=== PATIENT | male | born 1995 | race Caucasian/White ===

== ENCOUNTER 2016-10-01 07:50 | Emergency (ER) | payer SELFPAY ==
[2016-10-01 07:55] VITALS: BP 133/89
[2016-10-01] MEDS ORDERED: CIPROFLOXACIN HCL 500 MG TABLET PO ONE (08:17)
[2016-10-01] MEDS ORDERED: NEOMY SULF/POLYMYX B SULF/HC OTIC SUSP 10 ML AD ONE (08:17)
--- NOTE | 2016-10-01 08:17 | ER Document Report ---
ED ENT - General Mode of Arrival: Ambulatory Information source: Patient TRAVEL OUTSIDE OF THE [place] IN LAST 30 DAYS: No - HPI Patient complains to provider of: Ear problem Onset: Other - Refer to HPI Notes Associated symptoms: Ear pain - General Chief Complaint: Ear Pain Stated Complaint: EAR PAIN Time Seen by Provider: 10/01/16 08:09 Notes: Patient is a 21-year old male presenting to the emergency department for right ear pain. Patient's pain was onset a couple days ago and worsened yesterday. Patient states he has pain to the outside and inside of his ear but denies any drainage from his ear. Patient was swimming in his pool but has not been in since Sunday. Patient has been taking Tylenol. Patient states he had swimmer's ear as a child. Patient has no known drug allergies. (NATALY HAIRSTON) - Related Data Allergies/Adverse Reactions: No Known Allergies Allergy (Verified 10/01/16 08:03) Past Medical History - Social History Smoking Status: Current Every Day Smoker Chew tobacco use (# tins/day): No Frequency of alcohol use: None Drug Abuse: None Family History: None Patient has suicidal ideation: No Patient has homicidal ideation: No Surgical Hx: Negative - Immunizations Hx Diphtheria, Pertussis, Tetanus Vaccination: Yes Review of Systems - Review of Systems Constitutional: No symptoms reported EENT: See HPI, Ear pain. denies: Ear discharge Cardiovascular: No symptoms reported Respiratory: No symptoms reported Gastrointestinal: No symptoms reported Genitourinary: No symptoms reported Male Genitourinary: No symptoms reported Musculoskeletal: No symptoms reported Skin: No symptoms reported Hematologic/Lymphatic: No symptoms reported Neurological/Psychological: No symptoms reported -: Yes All other systems reviewed and negative Physical Exam - Vital signs Interpretation: Normal - Vital signs Vitals: Temp Pulse Resp BP Pulse Ox 98.5 F 84 17 133/89 H 96 10/01/16 07:52 10/01/16 07:52 10/01/16 07:52 10/01/16 07:52 10/01/16 07:52 - Notes Notes: GENERAL: Alert, interacts well. No acute distress. HEAD: Normocephalic, atraumatic. EYES: Appear normal. Pupils equal, round, and reactive to light. ENT: Moist mucus membranes, tongue midline. Right ear is exquisitely tender to manipulate, right ear canal is swollen but not swollen shut and appears wet. Left TM intact and appears normal. NECK: Full range of motion. Supple. Trachea midline. LUNGS: Clear to auscultation bilaterally, no wheezes, rales, or rhonchi. No respiratory distress. HEART: Regular rate and rhythm. No murmurs, gallops, or rubs. ABDOMEN: Soft, non-tender. Non-distended. Normal bowel sounds. EXTREMITIES: Moves all 4 extremities spontaneously. Normal strength. No edema. NEUROLOGICAL: Alert and oriented x3. Normal speech. No focal neurological deficits. GSC 15. PSYCH: Normal affect, normal mood. SKIN: Warm, dry, normal turgor. No rashes or lesions noted. (NATALY HAIRSTON) Discharge - Discharge Clinical Impression: Otitis externa Qualifiers: Otitis externa type: swimmer's ear Chronicity: acute Laterality: right Qualified Code(s): H60.331 - Swimmer's ear, right ear Condition: Stable Disposition: HOME, SELF-CARE Additional Instructions: Otitis Externa: You have otitis externa -- an infection of the outer ear canal. This can be very painful. It's sometimes called "swimmer's ear," because it often occurs after prolonged water exposure. Many things, such as earwax and dirt in the ear, can contribute to it. The usual treatment is antibiotic/antiinflammatory ear drops. Occasionally , a wick will be placed in the ear to draw in the medicine. If the infection is severe, an oral antibiotic may be prescribed. Pain medication is often needed. Avoid getting water in the ear. Outer ear infections often take longer to heal than you might expect. Some tenderness and ache in the ear may persist for about two weeks. See your physician if you fail to improve as expected. Call the doctor at once if you develop fever, increasing swelling (particularly if it makes your ear "poke out"), severe headache, stiff neck, or decreased hearing. TAKE THE MEDICATION PRESCRIBED. PUT [address] THE EAR AND PLACE A COTTON WICK 4X DAILY. TAKE IBUPROFEN 600mg EVERY 8 EIGHT HOURS FOR INFLAMMATION PAIN. FOLLOW UP WITH A LOCAL MEDICAL DOCTOR OR ENT DOCTOR IF NOT IMPROVING. RETURN TO THE EMERGENCY ROOM IF ANY NEW OR WORSENING SYMPTOMS. Prescriptions: Ciprofloxacin HCl [Cipro 500 mg Tablet] 500 mg PO BID #10 tablet Scribe Attestation: 10/01/16 08:20 I personally performed the services described in the documentation, reviewed and edited the documentation which was dictated to the scribe in my presence, and it accurately records my words and actions. (ALFRED ZAMORA) Scribe Documentation - Scribe Written by Scribe:: Jana Malloy, 10/01/2016 8:30 acting as scribe for :: Pedro Luis
[2016-10-01] MEDS ORDERED: HYDROCODONE/ACETAMINOPHEN 5-325 MG 6 TAB/DSPK PO PRN (08:21)
== END 2016-10-01 08:28 | disposition home or self-care (01) ==
LOC: ER 07:50
DX: H60.331 Swimmer's ear, right ear (principal); H92.01 Otalgia, right ear; F17.200 Nicotine dependence, unspecified, uncomplicated
CPT/HCPCS: 99282; J3490

== ENCOUNTER 2018-05-28 19:25 | Emergency (ER) | payer SELFPAY ==
[2018-05-28] MEDS ORDERED: ACETAMINOPHEN 325 MG TABLET PO ONE (20:09)
[2018-05-28 20:34] LABS: ABSOLUTE BASOPHILS # (AUTO) 0.1 10^3/uL (0.0-0.2); ABSOLUTE EOSINOPHILS # (AUTO) 0.2 10^3/uL (0.0-0.6); ABSOLUTE LYMPHOCYTES (AUTO) 2.8 10^3/uL (0.5-4.7); ABSOLUTE NEUT (AUTO) 10.7 10^3/uL (1.7-8.2); BASOPHILS % (AUTO) 0.5 % (0-2); EOSINOPHILS % (AUTO) 1.1 % (0-6); HEMATOCRIT 42.7 % (37.9-51.0); HEMOGLOBIN 14.8 g/dL (13.5-17.0); LYMPHOCYTES % (AUTO) 17.7 % (13-45); MEAN CORPUSCULAR HEMOGLOBIN 31.5 pg (27.0-33.4); MEAN CORPUSCULAR HGB CONC 34.6 g/dL (32.0-36.0); MEAN CORPUSCULAR VOLUME 91 fl (80-97); MONOCYTES % (AUTO) 12.6 % (3-13); PLATELET COUNT 272 10^3/uL (150-450); RED CELL DISTRIBUTION WIDTH 14.1 % (11.5-14.0); SEGMENTED NEUTROPHILS % (AUTO) 68.1 % (42-78); TOTAL CELLS COUNTED % (AUTO) 100 %; WHITE BLOOD COUNT 15.6 10^3/uL (4.0-10.5)
[2018-05-28 20:39] LABS: APPEARANCE,URINE CLEAR; BILIRUBIN,URINE NEGATIVE (NEGATIVE); COLOR,URINE YELLOW; GLUCOSE, URINE NEGATIVE (NEGATIVE); KETONES,URINE NEGATIVE (NEGATIVE); LEUKOCYTE ESTERASE,URINE NEGATIVE (NEGATIVE); NITRITE,URINE NEGATIVE (NEGATIVE); PROTEIN,URINE NEGATIVE (NEGATIVE); URINE SPECIFIC GRAVITY 1.023
--- NOTE | 2018-05-28 20:41 | ER Document Report ---
Entered by JUAN NG SCRIBE 05/28/182005 Acting as scribe for:JAMARI MCKEON DO ED Medical Screen (RME) - General Chief Complaint: Testicular Pain Stated Complaint: SCROTUM PAIN Time Seen by Provider: 05/28/18 19:55 Mode of Arrival: Ambulatory Information source: Patient Notes: Patient is a 23 year old male presenting to the emergency department complaining of left testicular pain onset today. Patient states the pain is onset with movement, coughing, and bowel movements. He also states he noticed a burning sensation at the end of urinating. He denies any hematuria, redness or swelling of the testicles, pain with ejaculation or penile discharge. He states he last had protected intercourse 3 days ago. I have greeted and performed a rapid initial assessment of the patient. A comprehensive ED assessment and evaluation of the patient, analysis of test results, and completion of the medical decision making process will be conducted by additional ED providers. GENERAL: Alert, . interacts well. No acute distress. HEAD: Normocephalic, atraumatic. EYES: Pupils equal, round, and reactive to light. Extraocular movements intact. ENT: Oral mucosa moist, tongue midline. NECK: Full range of motion. Supple. Trachea midline. LUNGS: No respiratory distress. NEUROLOGICAL: Alert and oriented x3. Normal speech. PSYCH: Normal affect, normal mood. SKIN: Warm, dry, normal turgor. No rashes or lesions noted. TRAVEL OUTSIDE OF THE [place] IN LAST 30 DAYS: No - Related Data Allergies/Adverse Reactions: No Known Allergies Allergy (Verified 05/28/18 19:54) Past Medical History Renal/ Medical History: Denies: Hx Peritoneal Dialysis - Immunizations Hx Diphtheria, Pertussis, Tetanus Vaccination: Yes Physical Exam - Vital signs Vitals: Temp Pulse Resp BP Pulse Ox 101.8 F H 123 H 20 154/98 H 98 05/28/18 19:32 05/28/18 19:32 05/28/18 19:32 05/28/18 19:32 05/28/18 19:32 Course - Vital Signs Vital signs: Temp Pulse Resp BP Pulse Ox 101.8 F H 123 H 20 154/98 H 98 05/28/18 19:32 05/28/18 19:32 05/28/18 19:32 05/28/18 19:32 05/28/18 19:32 - Laboratory Result Diagrams: 05/28/18 20:20 05/28/18 20:20 Laboratory results interpreted by me: 05/28/18 20:20 WBC 15.6 H RDW 14.1 H Absolute Neutrophils 10.7 H Absolute Monocytes 2.0 H I personally performed the services described in the documentation, reviewed and edited the documentation which was dictated to the scribe in my presence, and it accurately records my words and actions.
--- NOTE | 2018-05-28 20:53 | ER Document Report ---
ED GI/ - General Chief Complaint: Testicular Pain Stated Complaint: SCROTUM PAIN Time Seen by Provider: 05/28/18 20:53 Primary Care Provider: CAS CAMPBELL MD [CAM[facility] PHILLIPS] - Follow up as needed Mode of Arrival: Ambulatory Information source: Patient Notes: HISTORY OF PRESENT ILLNESS: Patient is a 23-year-old male with no significant past medical history of who presents with mild to moderate pain of the left testicle for the past 3-4 days. Location: Left testicle Onset: 3-4 days ago Provocation: Unknown Quality: Aching Radiation: Left groin Severity: Currently mild, moderate at worst Timing: Constant Known injury: None Associated symptoms: No fevers or chills, no dysuria or hematuria, no penile discharge REVIEW OF SYSTEMS: CONSTITUTIONAL : Denies fever or chills, no sweats. Denies recent illness. EENT: Denies eye, ear, throat, or mouth pain or symptoms. Denies nasal or sinus congestion. CARDIOVASCULAR: Denies chest pain. RESPIRATORY: Denies cough, cold, or chest congestion. Denies shortness of breath, difficulty breathing, or wheezing. GASTROINTESTINAL: Denies abdominal pain. Denies nausea, vomiting, or diarrhea. Denies constipation. GENITOURINARY: Positive for left testicular pain. Denies difficulty urinating, painful urination, burning, frequency, or blood in urine. MUSCULOSKELETAL: Denies neck or back pain or joint pain or swelling. SKIN: Denies rash or skin lesions. HEMATOLOGIC : Denies easy bruising or bleeding. LYMPHATIC: Denies swollen, enlarged glands. NEUROLOGICAL: Denies altered mental status or loss of consciousness. Denies headache. Denies weakness or paralysis or loss of use of either side. Denies problems with gait or speech. Denies sensory or motor loss. PSYCHIATRIC: Denies anxiety or stress or depression. All other systems reviewed and negative. PHYSICAL EXAMINATION: GENERAL: Well-appearing, well-nourished and in no acute distress. HEAD: Atraumatic, normocephalic. No scalp deformity, depression, or crepitance. EYES: Pupils are 3 mm and equal/round/reactive to light, extraocular movements intact, sclera anicteric, conjunctiva are normal. ENT: Nares patent bilaterally, oropharynx clear without exudates or palatal petechia. Moist mucous membranes. No tonsil hypertrophy. NECK: Normal range of motion, supple without lymphadenopathy. LUNGS: Breath sounds present, equal, and clear to auscultation bilaterally. No wheezes, rales, or rhonchi. HEART: Regular rate and rhythm without murmurs, rubs, or gallops. 2+ peripheral pulses. Normal capillary refill. ABDOMEN: Soft, nontender, nondistended. Normoactive bowel sounds. No guarding, no rebound. No masses appreciated. BACK: Normal contour, no midline tenderness. Rectal exam deferred. GENITAL: Mild tenderness to the left testicle, no edema or swelling, no erythema, no penile discharge, no hernia. EXTREMITIES: Normal range of motion, no pitting or edema. No cyanosis. NEUROLOGICAL: No focal neurological deficits. Moves all extremities spontaneously and on command. PSYCH: Normal mood, normal affect. No suicidal thoughts/ideations. No homocidal thoughts/ideations. No hallucinations. SKIN: Warm, dry, normal turgor, no rashes or lesions noted. ASSESSMENT AND PLAN: This patient is a 23-year-old male who presents with left testicular pain that could be related to hydrocele versus cyst versus epididymitis versus UTI versus STD. 1. Will obtain labs, urine, and testicular ultrasound. 2. Will give oral [place] for pain relief. TRAVEL OUTSIDE OF THE [place] IN LAST 30 DAYS: No - Related Data Allergies/Adverse Reactions: No Known Allergies Allergy (Verified 05/28/18 19:54) Past Medical History - General Information source: Patient, Relative - Social History Smoking Status: Current Every Day Smoker Chew tobacco use (# tins/day): No Frequency of alcohol use: Social Drug Abuse: Marijuana Lives with: Family Family History: None Patient has suicidal ideation: No Patient has homicidal ideation: No - Past Medical History Cardiac Medical History: Reports: None Pulmonary Medical History: Reports: None EENT Medical History: Reports: None Neurological Medical History: Reports: None Endocrine Medical History: Reports: None Renal/ Medical History: Reports: None. Denies: Hx Peritoneal Dialysis Malignancy Medical History: Reports None GI Medical History: Reports: None Musculoskeletal Medical History: Reports None Skin Medical History: Reports None Psychiatric Medical History: Reports: None Traumatic Medical History: Reports: None Infectious Medical History: Reports: None Surgical Hx: Negative Past Surgical History: Reports: None - Immunizations Immunizations up to date: Yes Hx Diphtheria, Pertussis, Tetanus Vaccination: Yes History of Influenza Vaccine for 12/2016 - 05/2017 Season: Unknown Physical Exam - Vital signs Vitals: Temp Pulse Resp BP Pulse Ox 101.8 F H 123 H 20 154/98 H 98 05/28/18 19:32 05/28/18 19:32 05/28/18 19:32 05/28/18 19:32 05/28/18 19:32 Course - Re-evaluation Re-evalutation: 05/29/18 00:07 Labs, urinalysis, and GC/chlamydia are normal. Ultrasound shows a left testicular cyst. He will be referred to urology. He will be discharged home with return precautions and follow-up. Patient voices both understanding and agreeing with plan. - Vital Signs Vital signs: Temp Pulse Resp BP Pulse Ox 98.4 F 90 20 132/89 H 97 05/29/18 00:40 05/29/18 00:40 05/29/18 00:40 05/29/18 00:40 05/29/18 00:40 - Laboratory Result Diagrams: 05/28/18 20:20 05/28/18 20:20 Laboratory results interpreted by me: 05/28/18 05/28/18 05/28/18 20:20 20:20 20:20 WBC 15.6 H RDW 14.1 H Absolute Neutrophils 10.7 H Absolute Monocytes 2.0 H Calcium 10.3 H Direct Bilirubin 0.5 H AST 74 H ALT 105 H Urine Blood SMALL H Urine Urobilinogen 2.0 H - Diagnostic Test Radiology reviewed: Image reviewed, Reports reviewed Discharge - Discharge Clinical Impression: Testicular pain Condition: Good Disposition: HOME, SELF-CARE Instructions: Testicular Pain ([facility]) Additional Instructions: You have been evaluated in the Emergency Department for testicular pain. While here, you had blood work and urine that were normal, and an ultrasound showed a small fluid collection in your left testicle. It is now safe to be discharged home and follow-up with a urologist as instructed in 1 week to be rechecked. Return to the Emergency Department if you experience worsening pain, swelling of the testicle, difficulty urinating, or any other concerning symptoms. Prescriptions: Diclofenac Sodium 75 mg PO BID #30 tablet.dr Referrals: CAS CAMPBELL MD [CAMDEN PHILLIPS] - Follow up as needed
[2018-05-28 20:57] LABS: ALANINE AMINOTRANSFERASE 105 U/L (21-72); ALBUMIN 4.8 g/dL (3.5-5.0); ALKALINE PHOSPHATASE 62 U/L (38-126); ANION GAP 14 (5-19); ASPARTATE AMINO TRANSFERASE 74 U/L (17-59); BILIRUBIN,DIRECT 0.5 mg/dL (0.0-0.4); BILIRUBIN,TOTAL 1.2 mg/dL (0.2-1.3); BLOOD UREA NITROGEN 13 mg/dL (7-20); CALCIUM 10.3 mg/dL (8.4-10.2); CARBON DIOXIDE 24 mmol/L (22-30); CHLORIDE 102 mmol/L (98-107); GLUCOSE 102 mg/dL (75-110); TOTAL PROTEIN 7.7 g/dL (6.3-8.2)
[2018-05-28] MEDS ORDERED: HYDROCODONE/ACETAMINOPHEN 5-325 MG TABLET PO ONE (21:18)
--- NOTE | 2018-05-28 22:13 | RADIOLOGY REPORT (SQ) ---
EXAM DESCRIPTION: US SCROTUM COMPLETED DATE/TME: 05/28/2018 19:56 CLINICAL HISTORY: 23 years, Male, testicular pain and swelling COMPARISON: None. TECHNIQUE: Transverse and longitudinal sonographic images of the testes LIMITATIONS: None. FINDINGS: The right testicle measures 3.2 x 2.4 x 2.4 cm, the left 3.1 x 3.2 x 2.1 cm. Negative for intratesticular mass. Doppler and spectral analysis with color flow shows arterial and venous flow to both testes. The epididymides are unremarkable bilaterally. Small left hydrocele noted. IMPRESSION: Small left hydrocele. Remainder is unremarkable copyright 2010 [employer]- All Rights Reserved
[2018-05-28 23:04] LABS: CHLAM PCR NOT DETECTED (NOT DETECT); GON PCR NOT DETECTED (NOT DETECT)
[2018-05-29 00:43] VITALS: BP 132/89
== END 2018-05-29 00:43 | disposition home or self-care (01) ==
LOC: ER 19:25
DX: N50.812 Left testicular pain (principal); F17.200 Nicotine dependence, unspecified, uncomplicated
CPT/HCPCS: 36415; 76870; 80053; 81001; 85025; 87491; 87591; 93976; 99284